=== PATIENT | male | born 1995 | race Caucasian/White ===

== ENCOUNTER 2020-07-08 20:23 | Emergency (ER) | payer SELFPAY ==
[~2020-07-08] VITALS: Ht 185.4 cm; Wt 136.1 kg
[2020-07-08 20:51] VITALS: BP 138/73
[2020-07-08] MEDS ORDERED: diphenhdrAMINE HCL 25 MG CAP PO ONE (21:00)
[2020-07-08] MEDS ORDERED: methylPREDNISolone SOD SUCC 125 MG/2 ML VL IM ONE (21:00)
== END 2020-07-08 21:17 | disposition home or self-care (01) ==
LOC: ER 20:25
DX: T78.1XXA Other adverse food reactions, not elsewhere classified, initial encounter (principal); X58.XXXA Exposure to other specified factors, initial encounter
CPT/HCPCS: 96372; 99283; J2930